=== PATIENT | male | born 1970 | race Caucasian/White ===

== ENCOUNTER 2017-10-16 15:51 | Emergency (ER) | payer BC ==
[~2017-10-16] VITALS: Ht 175.3 cm; Wt 88.9 kg
[2017-10-16] MEDS ORDERED: CIPR-249 PO (16:00)
--- NOTE | 2017-10-16 17:56 | REP ---
Left hand complete: 10/16/2017: Clinical history: Trauma, possible foreign body. Findings: Four views are provided. There is prominent soft tissue swelling of the dorsal aspect of the hand. I see no fracture or avulsion. There is no radiopaque foreign bodies. Some of the edema extends into the digits. Distal radius and ulna intact. Carpal bones and joint spaces preserved. The CP and IP joints unremarkable. Impression: 1. Soft tissue swelling dorsal aspect of the hand and wrist without visible fracture, avulsion, foreign body or other acute finding. Signed by Eron Aguilar MD 10/17/2017 08:19 P
[2017-10-16 18:32] LABS: BASO # 0.1 10^3/uL (0.0-0.2); BASO % 0.4 % (0.0-1.0); EOS # 0.2 10^3/uL (0.0-0.50); IMMATURE GRANULOCYTE % 0.4 % (0-0); LYMPH # 3.6 10^3/uL (1.5-4.5); LYMPH % 21.6 % (24.0-44.0); MEAN CORPUSCULAR HEMOGLOBIN 31.1 pg (27.0-33.0); MEAN CORPUSCULAR HGB CONC 35.8 g/dl (32.0-36.5); MONO # 0.9 10^3/uL (0.0-0.8); MONO % 5.4 % (0.0-5.0); NEUTROPHILS % 71.2 % (36.0-66.0); PLATELET COUNT, AUTOMATED 213 10^3/uL (150-450); RED CELL DISTRIBUTION WIDTH 13.1 % (11.5-14.5); WHITE BLOOD COUNT 16.8 10^3/uL (4.0-10.0)
[2017-10-16 18:59] LABS: ERYTHROCYTE SEDIMENTATION RATE 2 mm/hr (0-15)
[2017-10-16] MEDS ORDERED: AMPICILLIN SOD/SULBACTAM SOD 3 GM in D5W MINI-BAG PLUS 100 ML IV ONE (19:30)
[2017-10-16] MEDS ORDERED: ADACEL/BOOSTRIX VACCINE (DIPHTH/PERTUSS/ACELL/TETANUS)0.5ML SYR (90715) IM ONE (19:45)
[2017-10-16] MEDS ORDERED: MORPHINE 4 MG/ML 1ML SYRINGE IV ONE (19:45)
[2017-10-16] MEDS ORDERED: AUGM875T28 PO (20:57)
[2017-10-16 21:11] VITALS: BP 158/89
[2017-10-16] MEDS ORDERED: NORCO 5/325MG TABLET (BULK FOR ED) PO ONE (21:15)
--- NOTE | 2017-10-17 05:43 | REP ---
REASON FOR EXAM: Pain and swelling. Multiple ultrasonographic images over the palmar surface of the left hand near the first digit show a complex mixed echo structure predominately consisting of low level echoes measuring approximately 2.0 x 1.4 x 1.6 cm. IMPRESSION: Complex cystic structure seen as described above. The etiology is uncertain. Abscess versus complex ganglion cyst versus other. This needs to be correlated clinically with appropriate followup. Consider MRI for further evaluation. Signed by Yan Blackmon DO 10/17/2017 03:29 P
== END 2017-10-16 21:15 | disposition home or self-care (01) ==
LOC: M ED 15:51
DX: L02.512 Cutaneous abscess of left hand (principal); F17.210 Nicotine dependence, cigarettes, uncomplicated; Z79.2 Long term (current) use of antibiotics

== ENCOUNTER → 2017-10-19 | Outpatient (REF) | payer BC ==
[~2017-10-19] MED LIST: AUGM875T28 PO; CIPR-249 PO
[2017-10-19 12:39] LABS: BASO # 0.1 10^3/uL (0.0-0.2); BASO % 0.7 % (0.0-1.0); EOS # 0.1 10^3/uL (0.0-0.50); EOS % 1.4 % (0.0-3.0); IMMATURE GRANULOCYTE % 0.3 % (0-0); LYMPH # 2.6 10^3/uL (1.5-4.5); LYMPH % 26.6 % (24.0-44.0); MEAN CORPUSCULAR HEMOGLOBIN 31.2 pg (27.0-33.0); MEAN CORPUSCULAR HGB CONC 35.4 g/dl (32.0-36.5); MEAN CORPUSCULAR VOLUME 88.3 fl (80.0-96.0); MONO # 0.6 10^3/uL (0.0-0.8); MONO % 6.2 % (0.0-5.0); NEUTROPHILS # 6.4 10^3/uL (1.8-7.7); NEUTROPHILS % 64.8 % (36.0-66.0); PLATELET COUNT, AUTOMATED 210 10^3/uL (150-450); RED CELL DISTRIBUTION WIDTH 13.1 % (11.5-14.5); WHITE BLOOD COUNT 9.9 10^3/uL (4.0-10.0)
== END ==
LOC: M LABDRAW1 10:22
PROVIDERS: ATTEND Orthopaedic Surgery
DX: S61.422A Laceration with foreign body of left hand, initial encounter (principal); X58.XXXA Exposure to other specified factors, initial encounter; Y92.89 Other specified places as the place of occurrence of the external cause; Y93.89 Activity, other specified; Y99.8 Other external cause status

== ENCOUNTER → 2019-11-22 | Outpatient (REF) | payer OTHER ==
[2019-11-22 16:16] LABS: HEMOGLOBIN A1c 7.6 %
[2019-11-22 16:29] LABS: ALBUMIN 4.3 GM/DL (3.2-5.2); ALT/SGPT 35 U/L (12-78); BILIRUBIN,TOTAL 0.7 MG/DL (0.2-1.0); BLOOD UREA NITROGEN 8 MG/DL (7-18); CARBON DIOXIDE LEVEL 27 MEQ/L (21-32); CHLORIDE LEVEL 99 MEQ/L (98-107); CHOLESTEROL LEVEL 172 MG/DL (<200); CHOLESTEROL RISK RATIO 7.478 (<5); CREATININE FOR GFR 0.86 MG/DL (0.70-1.30); GLOMERULAR FILTRATION RATE > 60.0 (>60); GLUCOSE, FASTING 186 MG/DL (70-100); HDL CHOLESTEROL 23 MG/DL (>40); LDL CHOLESTEROL 97 MG/DL (<100); NON-HDL-C 149 MG/DL; POTASSIUM SERUM 3.8 MEQ/L (3.5-5.1); SODIUM LEVEL 137 MEQ/L (136-145); TOTAL PROTEIN 7.3 GM/DL (6.4-8.2); TRIGLYCERIDES LEVEL 261 MG/DL (<150)
[2019-11-22 16:37] LABS: CREATININE, URINE 18.5 MG/DL; MALB URINE SIEMENS 85.6 MG/L; MAU/CREAT RATIO 462.7 MCG/MG (0.0-30.0)
== END ==
LOC: M SFHCPLAZ 14:37
PROVIDERS: ATTEND Nurse Practitioner Family
DX: E11.9 Type 2 diabetes mellitus without complications (principal); Z13.220 Encounter for screening for lipoid disorders

== ENCOUNTER 2020-01-07 10:41 | Emergency (ER) | payer OTHER ==
[2020-01-07] MEDS ORDERED: LISI10TA4 (10:46)
[2020-01-07] MEDS ORDERED: METF750T36 (10:46)
[2020-01-07 11:28] LABS: BASO # 0.1 10^3/uL (0.0-0.2); BASO % 0.4 % (0.0-1.0); EOS # 0.2 10^3/uL (0.0-0.5); EOS % 1.1 % (0.0-3.0); HEMOGLOBIN 17.2 g/dl (13.5-17.5); LYMPH # 3.4 10^3/uL (1.5-5.0); LYMPH % 24.5 % (24.0-44.0); MEAN CORPUSCULAR HEMOGLOBIN 30.8 pg (27.0-33.0); MEAN CORPUSCULAR HGB CONC 35.8 g/dl (32.0-36.5); MEAN CORPUSCULAR VOLUME 85.9 fl (80.0-96.0); MONO # 0.6 10^3/uL (0.0-0.8); MONO % 4.4 % (0.0-5.0); NEUTROPHILS # 9.6 10^3/uL (1.5-8.5); NEUTROPHILS % 69.2 % (36.0-66.0); PLATELET COUNT, AUTOMATED 209 10^3/uL (150-450); RED BLOOD COUNT 5.59 10^6/uL (4.30-6.10); WHITE BLOOD COUNT 13.9 10^3/uL (4.0-10.0)
[2020-01-07] MEDS ORDERED: NS 1,000 ML IV ONE (11:45)
[2020-01-07 11:48] LABS: ALBUMIN 4.1 GM/DL (3.2-5.2); ALT/SGPT 26 U/L (12-78); BILIRUBIN,DIRECT 0.2 MG/DL (0.0-0.2); BILIRUBIN,TOTAL 0.6 MG/DL (0.2-1.0); BLOOD UREA NITROGEN 14 MG/DL (7-18); CALCIUM LEVEL 9.1 MG/DL (8.5-10.1); CARBON DIOXIDE LEVEL 28 MEQ/L (21-32); CHLORIDE LEVEL 100 MEQ/L (98-107); CREATININE FOR GFR 0.95 MG/DL (0.70-1.30); GLOMERULAR FILTRATION RATE > 60.0 (>60); GLUCOSE, FASTING 274 MG/DL (70-100); LIPASE 419 U/L (73-393); SODIUM LEVEL 132 MEQ/L (136-145); TOTAL PROTEIN 7.9 GM/DL (6.4-8.2)
--- NOTE | 2020-01-07 12:49 | REP ---
Abdominal right upper quadrant ultrasound for right upper quadrant pain and biliary colic: The gallbladder is contracted. There are multiple calculi within the contracted gallbladder. There is no gallbladder wall thickening or pericholecystic fluid. There is no intrahepatic or extrahepatic biliary duct dilatation. The common biliary duct measures 2.7 mm in diameter. The hepatic parenchyma is extremely hyperechoic compatible with hepato steatosis/hepatobiliary disease. No hepatic masses are identified. The pancreas is mostly obscured by bowel gas. Right kidney measures 13.2 x 6.2 x 5.2 cm and is normal size. There are no right renal calculi. There is no hydronephrosis. There are no right renal solid or cystic masses. There is no right upper quadrant abdominal ascites. Impression: Cholelithiasis. The gallbladder is contracted. There is no ultrasonographic evidence of acute cholecystitis or biliary duct obstruction. Hepato steatosis/hepatocellular disease. No ascites. Pancreas, mostly obscured by bowel gas. Electronically Signed by Maximo Ojeda MD 01/07/2020 12:40 P
[2020-01-07 13:44] VITALS: BP 121/77
== END 2020-01-07 14:10 | disposition home or self-care (01) ==
LOC: M ED 10:41
DX: K80.70 Calculus of gallbladder and bile duct without cholecystitis without obstruction (principal); E11.9 Type 2 diabetes mellitus without complications; I10 Essential (primary) hypertension; F17.200 Nicotine dependence, unspecified, uncomplicated; Z79.84 Long term (current) use of oral hypoglycemic drugs; Z79.899 Other long term (current) drug therapy

== ENCOUNTER → 2020-01-15 | Outpatient (REF) | payer OTHER ==
[~2020-01-15] MED LIST changes: +LISI10TA4; +METF750T36
[2020-01-15 12:17] LABS: HEMATOCRIT 50.8 % (42.0-52.0); LYMPH % 29.7 % (24.0-44.0); MEAN CORPUSCULAR HEMOGLOBIN 31.3 pg (27.0-33.0); MEAN CORPUSCULAR HGB CONC 35.4 g/dl (32.0-36.5); MEAN CORPUSCULAR VOLUME 88.3 fl (80.0-96.0); MONO % 5.3 % (0.0-5.0); NEUTROPHILS % 62.5 % (36.0-66.0); PLATELET COUNT, AUTOMATED 218 10^3/uL (150-450); RED BLOOD COUNT 5.75 10^6/uL (4.30-6.10); WHITE BLOOD COUNT 11.7 10^3/uL (4.0-10.0)
[2020-01-15 12:18] LABS: BASO # 0.1 10^3/uL (0.0-0.2); BASO % 0.6 % (0.0-1.0); EOS # 0.2 10^3/uL (0.0-0.5); EOS % 1.5 % (0.0-3.0); LYMPH # 3.5 10^3/uL (1.5-5.0); MONO # 0.6 10^3/uL (0.0-0.8); NEUTROPHILS # 7.3 10^3/uL (1.5-8.5)
[2020-01-15 12:44] LABS: ALT/SGPT 32 U/L (12-78); BILIRUBIN,TOTAL 0.5 MG/DL (0.2-1.0); BLOOD UREA NITROGEN 10 MG/DL (7-18); C REACTIVE PROTEIN QUANTITATIV < 0.30 MG/DL (0.00-0.30); CALCIUM LEVEL 9.2 MG/DL (8.5-10.1); CARBON DIOXIDE LEVEL 30 MEQ/L (21-32); CHLORIDE LEVEL 102 MEQ/L (98-107); CREATININE FOR GFR 0.83 MG/DL (0.70-1.30); GLOMERULAR FILTRATION RATE > 60.0 (>60); GLUCOSE, FASTING 245 MG/DL (70-100); LIPASE 852 U/L (73-393); POTASSIUM SERUM 4.3 MEQ/L (3.5-5.1); SODIUM LEVEL 136 MEQ/L (136-145); TOTAL PROTEIN 7.3 GM/DL (6.4-8.2)
== END ==
LOC: M SFHCPLAZ 10:41
PROVIDERS: ATTEND Physician Assistant Medical
DX: K80.20 Calculus of gallbladder without cholecystitis without obstruction (principal)

== ENCOUNTER → 2020-02-07 | Outpatient (CLI) | payer OTHER ==
--- NOTE | 2020-02-07 10:26 | REP ---
Hepatobiliary scan and gallbladder ejection fraction: History: Gallbladder calculus. Technique: 6.6 mCi of technetium-99m mebrofenin was injected and sequential anterior images are acquired. 65 minutes after the mebrofenin injection, the patient consumed 8 ounces Ensure and an additional 60 minutes of imaging was acquired. Regions of interest are plotted around the gallbladder. Findings: The initial hepatocellular parenchymal uptake phase is normal and homogeneous. Intra- and extra-hepatic bile ducts are labeled by the 10 -minute image. The gallbladder is first labeled on the 10 -minute image. There is normal washout from the liver parenchyma into the gallbladder and small intestine on subsequent images. The gallbladder ejection fraction is 79 %. Values greater than 35 % are considered normal with this technique. Impression: Normal hepatobiliary scan and normal gallbladder ejection fraction. Electronically Signed by Nagi Ridley MD 02/07/2020 10:18 A
== END ==
LOC: M RAD 07:48
PROVIDERS: ATTEND Physician Assistant Medical
DX: K80.20 Calculus of gallbladder without cholecystitis without obstruction (principal)
CPT/HCPCS: 78227; A9537

== ENCOUNTER → 2020-02-26 | Outpatient (REF) | payer OTHER ==
[2020-02-26 10:52] LABS: CHOLESTEROL LEVEL 166 MG/DL (<200); CHOLESTEROL RISK RATIO 8.736 (<5); FOLLICLE STIMULATING HORMONE 6.6 mIU/mL (1.4-18.1); HDL CHOLESTEROL 19 MG/DL (>40); LUTEINIZING HORMONE 6.8 mIU/mL (1.5-9.3); NON-HDL-C 147 MG/DL; PROLACTIN 3.1 NG/ML (2.1-17.7); TRIGLYCERIDES LEVEL 473 MG/DL (<150)
[2020-02-27 14:06] LABS: TESTOSTERONE FREE (DIRECT) 12.8 pg/mL (6.8-21.5)
== END ==
LOC: M SFHCPLAZ 09:25
PROVIDERS: ATTEND Physician Assistant Medical
DX: E78.5 Hyperlipidemia, unspecified (principal); N52.9 Male erectile dysfunction, unspecified; E11.9 Type 2 diabetes mellitus without complications